=== PATIENT | female | born 1940 | race Caucasian/White ===

== ENCOUNTER → 2016-04-27 | Outpatient (CLI) | payer BC ==
[~2016-04-27] MED LIST: ARIMIDEX1 MG PO; ATORVASTATIN PO; CITALOPRAM20 MG PO; FERROUS SU325 MG/TAB PO; FOLIC ACID 40400 MCG PO; MULTI VITAMINS1 TAB PO; TENEX1 MG PO; TRIAMTERENE PO; VITAMIN C BUFF500 MG PO; [UNRECOGNIZED DRUG - OTHER] PO
== END ==
LOC: MC.RAD 10:00
DX: Z12.31 Encounter for screening mammogram for malignant neoplasm of breast (principal); R92.8 Other abnormal and inconclusive findings on diagnostic imaging of breast; Z85.3 Personal history of malignant neoplasm of breast; Z80.3 Family history of malignant neoplasm of breast

== ENCOUNTER → 2016-04-28 | Outpatient (CLI) | payer BC | LOC: MC.RAD 09:30 | DX: D24.2 Benign neoplasm of left breast (principal); Z85.3 Personal history of malignant neoplasm of breast; Z80.3 Family history of malignant neoplasm of breast ==

== ENCOUNTER → 2017-04-28 | Outpatient (CLI) | payer BC | LOC: MC.RAD 13:20 | DX: Z12.31 Encounter for screening mammogram for malignant neoplasm of breast (principal); Z98.890 Other specified postprocedural states; Z92.3 Personal history of irradiation; Z85.3 Personal history of malignant neoplasm of breast ==

== ENCOUNTER → 2018-05-12 | Outpatient (CLI) | payer BC | LOC: MC.RAD 08:52 | DX: Z12.31 Encounter for screening mammogram for malignant neoplasm of breast (principal) ==

== ENCOUNTER → 2019-05-29 | Outpatient (CLI) | payer BC | LOC: MC.RAD 09:11 | DX: Z12.31 Encounter for screening mammogram for malignant neoplasm of breast (principal); Z98.82 Breast implant status ==

== ENCOUNTER 2019-08-03 12:33 | Emergency (ER) | payer BC ==
[~2019-08-03] VITALS: Ht 167.6 cm; Wt 81.8 kg
[2019-08-03 13:35] LABS: BASO % 0.6 % (0.0-2.0); EOS % 0.6 % (0-4.0); GRAN % 73.3 % (42.2-75.2); HEMATOCRIT 40.8 % (37.0-47.0); HEMOGLOBIN 13.7 g/dl (12.5-16.0); LYMPH % 17.7 % (20.0-51.0); MEAN CELL VOLUME 87 fl (80.0-100.0); MEAN CORPUSCULAR HEMOGLOBIN 29 pg (27.0-31.0); MEAN CORPUSCULAR HGB CONC 34 g/dl (33.0-37.0); MEAN PLATELET VOLUME 10.2 fl (7.4-10.4); MONO # 0.4 (0.1-0.6); MONO % 7.4 % (1.7-9.3); PLATELET COUNT 191 K/mm3 (130-400); RED BLOOD COUNT 4.71 M/mm3 (4.10-5.30); REDCELL DISTRIBUTION WIDTH-CV 13.2 % (11.5-14.5)
[2019-08-03 13:54] LABS: ALANINE AMINOTRANSFERASE 19 U/L (4-34); ALKALINE PHOSPHATASE 64 U/L (50-136); ANION GAP 7 mmol/L (7-16); AST,SGOT 37 U/L (15-37); BILIRUBIN,TOTAL 0.7 mg/dL (0.0-1.0); BLOOD UREA NITROGEN 9 mg/dL (7-17); CALCIUM 9.7 mg/dL (8.4-10.2); CARBON DIOXIDE 25 mmol/L (22-30); CHLORIDE 102 mmol/L (98-107); CREATININE, serum 0.68 (0.52-1.25); GLUCOSE 100 mg/dL (74-106); POTASSIUM 3.5 mmol/L (3.4-5.0); SODIUM 134 mmol/L (137-145); TOTAL PROTEIN 7.1 gm/dL (6.4-8.2)
[2019-08-03 14:03] LABS: C-REACTIVE PROTEIN < 0.5 mg/dL (0.0-0.9)
[2019-08-03 14:04] LABS: TROPONIN-I < 0.012 ng/mL (0.000-0.035)
[2019-08-03 14:30] VITALS: BP 144/91; PULSE 67; TEMP 97.1
[2019-08-03] MEDS ORDERED: WALKER MC (14:42)
[2019-08-03] MEDS ORDERED: ANTIVERT 25MG25 MG PO (14:42)
== END 2019-08-03 15:26 | disposition home or self-care (01) ==
LOC: COL.ER 12:33
PROVIDERS: Emergency Medicine
DX: R42 Dizziness and giddiness (principal); E78.5 Hyperlipidemia, unspecified; I10 Essential (primary) hypertension; Z79.899 Other long term (current) drug therapy
CPT/HCPCS: J2060; J2405; J7030

== ENCOUNTER → 2019-09-18 | Outpatient (CLI) | payer BC ==
[~2019-09-18] MED LIST changes: +ANTIVERT 25MG25 MG PO; +WALKER MC
== END ==
LOC: COL.RAD 09:39
DX: I67.82 Cerebral ischemia (principal); G31.9 Degenerative disease of nervous system, unspecified; S09.90XA Unspecified injury of head, initial encounter
CPT/HCPCS: A9585

== ENCOUNTER → 2020-01-03 | Outpatient (CLI) | payer BC | END | disposition still patient (30) | LOC: COL.RAD 08:00 | DX: S09.93XA Unspecified injury of face, initial encounter (principal); W19.XXXA Unspecified fall, initial encounter ==

== ENCOUNTER → 2020-05-30 | Outpatient (CLI) | payer BC | LOC: MC.RAD 08:37 | DX: Z12.31 Encounter for screening mammogram for malignant neoplasm of breast (principal); Z92.3 Personal history of irradiation; Z98.890 Other specified postprocedural states; Z98.82 Breast implant status ==

== ENCOUNTER → 2021-06-19 | Outpatient (CLI) | payer BC | LOC: MC.RAD 09:27 | DX: Z12.31 Encounter for screening mammogram for malignant neoplasm of breast (principal) ==

== ENCOUNTER 2021-11-03 09:45 | Outpatient (RCR) | payer BC | END 2021-11-08 | disposition home or self-care (01) | LOC: MKS.ESL.PT | DX: R42 Dizziness and giddiness (principal) ==

== ENCOUNTER 2021-11-17 09:45 | Outpatient (RCR) | payer BC | END 2021-12-09 | disposition home or self-care (01) | LOC: MKS.ESL.PT | DX: R42 Dizziness and giddiness (principal) ==

== ENCOUNTER → 2022-09-08 | Outpatient (CLI) | payer BC ==
[~2022-09-08] MED LIST changes: +ARICEPT10 MG PO
== END ==
LOC: COL.PUL 10:34
DX: G47.34 Idiopathic sleep related nonobstructive alveolar hypoventilation (principal)

== ENCOUNTER 2023-10-14 10:58 | Emergency (ER) | payer BC ==
[~2023-10-14] VITALS: Ht 175.3 cm; Wt 56.8 kg
[~2023-10-14 10:58] MED LIST changes: +ASPIRIN E.C. 8181 MG PO; +COZAAR 50MG50 MG/TAB PO; +LASIX 20MG TABL20 MG PO; +LIPITOR 10MG10 MG PO; +NAMENDA 10MG TA10 MG PO; +TENEX PO
[2023-10-14 11:01] VITALS: TEMP 98.7
[2023-10-14] MEDS ORDERED: NS 250 ML IV ONE (11:30)
[2023-10-14 11:56] LABS: HEMATOCRIT 41.1 % (37.0-47.0); HEMOGLOBIN 13.7 g/dl (12.5-16.0); MEAN CELL VOLUME 93 fl (80.0-100.0); MEAN CORPUSCULAR HEMOGLOBIN 31 pg (27-31); MEAN CORPUSCULAR HGB CONC 33 g/dl (33.0-37.0); MEAN PLATELET VOLUME 10.2 fl (7.4-10.4); PLATELET COUNT 164 K/mm3 (130-400); RED BLOOD COUNT 4.41 M/mm3 (4.10-5.30); REDCELL DISTRIBUTION WIDTH-CV 12.8 % (11.5-14.5)
[2023-10-14 12:12] LABS: ALBUMIN 3.6 g/dL (3.4-4.8); BILIRUBIN,TOTAL 0.7 mg/dL (0.2-1.2); CALCIUM 9.1 mg/dL (8.4-10.2); CREATININE, serum 0.76 mg/dL (0.57-1.11); POTASSIUM 3.7 mEq/L (3.5-4.5); TOTAL PROTEIN 7.3 g/dl (6.2-8.1)
[2023-10-14 12:18] LABS: TROPONIN-I 0.014 ng/mL (0.00-0.033)
[2023-10-14] MEDS ORDERED: Albuterol 0.083% Neb Soln 2.5 MG/3 ML UD IH ONE (12:30)
[2023-10-14] MEDS ORDERED: Ondansetron 4 MG/2 ML VIAL IV PRN (12:30)
[2023-10-14 12:42] LABS: BAND 2 % (0-10); BASOPHIL 1 % (0-2); EOSINOPHIL 1 % (0-4); LYMPHOCYTE 24 % (20.0-51.0); NEUTROPHILS 59 % (42.0-75.2); PLATELET ESTIMATE NORMAL (NORMAL)
[2023-10-14] MEDS ORDERED: ZOFRAN ODT4 MG PO (13:42)
--- NOTE | 2023-10-14 14:00 | NUR ---
utility worker driver received a call from ER Dr. Contreras to meet with pt regarding comfort care or hospice. SW was informed pt has dementia, stroke and declines transfer, and was found with a 4cm brain bleed. He certifies that she would have 6 months or less to live and hospice would be appropriate. LOUISA met with pt and in room to discuss all options and provide information. SW advised options as 1. home with hospice, 2. retirement with hospice, or 3. [facility] [place]. The reports interest in [facility] in the future, but he would like to take pt home and "see how that goes." [facility] for home hospice. SW advised him on what to expect and next steps. SW inquired if he can transport pt back home or if they will need EMS. states he brought her here and can take her back home. SW advised if he has any further questions to follow-up with PCP or the hospice agency and they can assist with next steps. He verbalized understanding and was provided [facility] number. confirmed [employer] insurance and Medicare A only. Pt did not contribute to comversation or acknowledge when SW offered greeting to pt. She was spitting in emesis bag during conversation. LOUISA informed Office Communication Professor and Dr. Contreras of the above. asks if he can discharge pt. LOUISA advised pt's had more questions on curing the nausea/vomiting, but asked SW if he "should pack it up." wrote a script for home hospice with < 6 months to live orders. LOUISA emailed [facility] ([facility]) referral to [place]. [facility]
[2023-10-14 14:18] VITALS: BP 153/81; PULSE 70
== END 2023-10-14 14:18 | disposition home or self-care (01) ==
LOC: COL.ER 10:58
PROVIDERS: Personal Emergency Response Attendant
DX: J40 Bronchitis, not specified as acute or chronic (principal); I62.9 Nontraumatic intracranial hemorrhage, unspecified
CPT/HCPCS: J2405; J7050